=== PATIENT | male | born 1960 | race Caucasian/White ===

== ENCOUNTER 2016-12-06 18:27 | Emergency (ER) | payer OTHER ==
--- NOTE | 2016-12-06 19:11 | UC ---
Cardiac HPI - HPI Summary HPI Summary: The patient comes in today for: 1. Left-sided chest pain: Onset: Initially, "early this morning" when at work he had chest pain (left side ) which was sharp and he became "lightheaded" (near syncope). He had just walked into work. He sat down at that time after going to the "back room"-- about 15 feet away. While walking, both of his legs felt "like lead." They also got "real tight." He also felt a "tingling numbness" in both legs. He saw down for about 10 minutes. He never fainted. He also felt pressure in the chest "like everything was being squeezed." His chest has felt tight since. He has also had some sharp pain "like a poke." At this time, he states that his legs feel "tight." He is still having chest tightness, leg tightness and heaviness, and tingling of his feet. He was at work until 5 PM. He works at a convenience store. Palliative/provocative: Deep breaths makes both the chest tightness and chest sharp pain worse. Quality: Tightness and sharp chest pain. Region: Left chest. Severity: 10/23 Time: Constant. Associated symptoms: Previous heart problems: None. CAD risk factors: Smoker: (+)--1ppd x 3 weeks--normally he does 1/2 ppd. HTN : (-). DM: (-). FmHx: (-). CT equivalent: (-), Cholesterol: (?). * - History of Current Complaint Chief Complaint: UCChestPain Stated Complaint: CHEST PAIN Time Seen by Provider: 12/06/16 18:58 Hx Obtained From: Patient - Allergy/Home Medications Allergies/Adverse Reactions: Allergies Allergy/AdvReac Type Severity Reaction Status Date / Time No Known Allergies Allergy Verified 05/26/14 13:40 Home Medications: Home Medications Ibuprofen [Advil] 400 mg 12/06/16 [History] PMH/Surg Hx/FS Hx/Imm Hx Previously Healthy: Yes Endocrine History Of: Denies: Diabetes, Thyroid Disease, Hyperthyroidism, Hypothyroidism, Dyslipidemia Cardiovascular History Of: Denies: Cardiac Disorders, Hypertension, Pacemaker/ICD, Myocardial Infarction , Congestive Heart Failure, Atrial Fibrillation, Deep Vein Thrombosis, Bleeding Disorders Respiratory History Of: Reports: COPD Denies: Asthma, Bronchitis, Pneumonia, Pulmonary Embolism GI/ History Of: Denies: Gastroesophageal Reflux, Ulcer, Gastrointestinal Bleed, Gall Bladder Disease, Kidney Stones, Diverticulitis, Renal Disease, Urosepsis Neurological History Of: Denies: TIA, CVA, Dementia, Seizures, Migraine Psychological History Of: Reports: Depression - He denies any suicidal ideation. Denies: Anxiety, Bipolar Disorder, Schizophrenia, Post Traumatic Stress Disorder Cancer History Of: Denies: Lung Cancer, Colorectal Cancer, Breast Cancer, Prostate Cancer, Cervical Cancer Other History Of: Negative For: HIV, Hepatitis B, Hepatitis C, Anticoagulant Therapy - Surgical History Surgical History: Yes Surgery Procedure, Year, and Place: wisdom teeth extraction - Family History Known Family History: Positive: Cardiac Disease Negative: Hypertension, Diabetes - Social History Occupation: Employed Full-time Alcohol Use: None Substance Use Type: Excessive Caffeine Smoking Status (MU): Heavy Every Day Tobacco Smoker Type: Cigarettes Amount Used/How Often: 1/2 ppd Have You Smoked in the Last Year: Yes Review of Systems Constitutional: Negative Skin: Negative Eyes: Negative ENT: Negative Respiratory: Negative Cardiovascular: Chest Pain Gastrointestinal: Negative Genitourinary: Negative All Other Systems Reviewed And Are Negative: Yes Physical Exam Triage Information Reviewed: Yes Appearance: Well-Appearing, No Pain Distress, Well-Nourished, Thin Vital Signs: Initial Vital Signs Temp 99.4 F 12/06/16 18:41 Pulse 77 12/06/16 18:41 Resp 16 12/06/16 18:41 BP 140/89 12/06/16 18:41 Pulse Ox 98 12/06/16 18:41 Vital Signs Reviewed: Yes Eyes: Positive: Conjunctiva Clear. Negative: Discharge ENT: Positive: Hearing grossly normal. Negative: Pharyngeal erythema, Nasal congestion, Nasal drainage, TM bulging, TM dull, TM red, Tonsillar swelling, Tonsillar exudate Dental: Positive: Other: - Mucous membraines moist, red. Neck: Positive: Supple, Nontender, No Lymphadenopathy. Negative: Nuchal Rigidity Respiratory: Positive: Chest non-tender, Lungs clear, No respiratory distress, No accessory muscle use. Negative: Rhonchi, Wheezing Cardiovascular: Positive: RRR, No Murmur Abdomen Description: Positive: Nontender, No Organomegaly, Soft. Negative: Distended, Guarding Musculoskeletal: Positive: Strength Intact, ROM Intact, No Edema Neurological: Positive: Alert, Muscle Tone Normal, Other: - Neurologic exam: Inspection: no fasciculations. Cranial nerves (II-XII): intact Muscular tone: Reflexes: Biceps: 2+/2 x 2 Triceps: 2+/2 x 2 Brachioradialis: 2+/2 x 2 Patellar: 2+/2 x 2 Achilles: 2+/2 x 2 Coordination: Upper extremity: Alternating patting of thighs, alternating fingertips to thumb, index finger tip to nose--all normal. Lower extremity: Heel along juarez--normal. Strength: Upper extremity: appropriate for age and symmetrical Lower extremity: appropriate for age and symmetrical Gait: Regular: Normal. Heel to toe: Normal. Rhomberg: Normal. Sensation: No complaint of numbness. Psychological: Positive: Age Appropriate Behavior, Consolable Skin: Negative: rashes, breakdown Diagnostics - Laboratory Diagnostic Studies Completed/Ordered: EKG: Rate: 72. Rhythm: Sinus. Ectopy: None. Acute changes: small st elevation of the II, III, AVF leads? - Assessment/Plan Course Of Treatment: Patient was told that I was concerned that he may have a mild heart attack and recommended going to [facility] [place] [facility] ER via Ambulance. But he is definite in his opinion to go over by the his own car. - Clinical Impression Provider Diagnoses: Chest pain, rule out CT. Discharge - Discharge Plan Condition: Stable Disposition: HOME Additional Instructions: Go directly to the ER at [facility] [place] [facility].
[2016-12-06] MEDS ORDERED: Aspirin Low Dose CHEW TAB* 81 MG PO ONE (19:23)
[2016-12-06 19:50] VITALS: BP 149/90
== END 2016-12-06 19:50 | disposition left against medical advice (07) ==
LOC: UCEAST 18:27
DX: R07.9 Chest pain, unspecified (principal); F17.290 Nicotine dependence, other tobacco product, uncomplicated
CPT/HCPCS: 93005; 99213; A9270-GY; G0463

== ENCOUNTER 2016-12-06 20:21 | Observation (INO) | payer OTHER ==
[2016-12-06 21:18] LABS: Hematocrit 45 % (42-52); Hemoglobin 15.3 g/dl (14.0-18.0); Mean Corpuscular HGB Conc 34 g/dl (31-36); Mean Corpuscular Hemoglobin 31 pg (27-31); Mean Corpuscular Volume 90 fL (80-94); Mean Platelet Volume 7 um3 (7.4-10.4); Red Blood Count 5.02 10^6/ul (4.0-5.4); Red Cell Distribution Width 14 % (10.5-15); White Blood Count 7.1 10^3/ul (3.5-10.8)
[2016-12-06] MEDS: NS 0.9% 1000 ML* 1,000 ML IV SCH (21:23)
[2016-12-06 21:33] LABS: Albumin 4.4 g/dL (3.2-5.2); BUN/Creatinine Ratio 7.7 (8-20); C Reactive Protein 2.61 mg/L (< 5.00); Calcium 9.5 mg/dL (8.6-10.3); EGFR African American 111.7 (>60); EGFR Non-African American 86.8 (>60); Globulin 2.6 g/dL (2-4); Magnesium 2.2 mg/dL (1.9-2.7); Potassium 3.3 mmol/L (3.5-5.0); Total Bilirubin 0.6 mg/dL (0.2-1.0)
[2016-12-06 21:35] LABS: Troponin I 0.01 ng/mL (<0.04)
--- NOTE | 2016-12-06 21:35 | RAD ---
Indication: Chest pain. Single frontal view of the chest performed at 2100 was reviewed. No prior study is available for comparison.. No mediastinal shift is noted. Heart is of normal size and configuration. Lung shelton appear clear. Chronic pleural changes are noted in the right costophrenic angle. IMPRESSION: LIKELY CHRONIC PLEURAL CHANGES RIGHT COSTOPHRENIC ANGLE.
[2016-12-06 21:55] LABS: TSH (Thyroid Stimulating Horm) 4.99 mcIU/mL (0.34-5.60)
--- NOTE | 2016-12-06 22:18 | ED ---
Bruno Keane Billy, scribed for Dejan Garcia MD on 12/06/16 at 2059 . HPI Chest Pain - HPI Summary HPI Summary: Patient is a 56 year-old male coming to [facility] for evaluation of intermittent chest pressure since 0900 this morning. He describes non-radiating, left-sided chest pain. Patient was seen at [facility] and referred to the ED for further evaluation. He reports feeling lightheaded and near-syncopal. He also states that his legs felt "heavy like lead" and numbness in both legs after he sat down. Patient states that he feels anxious due to numerous personal, emotional issues. He denies any diaphoresis or SOB. His chest pressure continues at this time in the ED. - History of Current Complaint Chief Complaint: EDChestPainROMI Time Seen by Provider: 12/06/16 20:52 Hx Obtained From: Patient Onset/Duration: Started Hours Ago Time of Onset: 09:00 Timing: Intermittent Initial Severity: Moderate Current Severity: Moderate Chest Pain Location: Left Anterior Chest Pain Radiates: No Character: Pressure/Squeezing Aggravating Factor(s): Nothing Alleviating Factor(s): Nothing Associated Signs and Symptoms: Positive: Chest Pain, Lightheadedness, Palpitations. Negative: Shortness of Breath, Diaphoresis - Allergy/Home Medications Allergies/Adverse Reactions: Allergies Allergy/AdvReac Type Severity Reaction Status Date / Time No Known Allergies Allergy Verified 05/26/14 13:40 PMH/Surg Hx/FS Hx/Imm Hx Endocrine/Hematology History: Denies: Hx Anticoagulant Therapy, Hx Diabetes, Hx Thyroid Disease Cardiovascular History: Denies: Hx Congestive Heart Failure, Hx Deep Vein Thrombosis, Hx Hypertension , Hx Myocardial Infarction, Hx Pacemaker/ICD Respiratory History: Reports: Hx Chronic Obstructive Pulmonary Disease (COPD) Denies: Hx Asthma, Hx Lung Cancer, Hx Pneumonia, Hx Pulmonary Embolism GI History: Denies: Hx Gall Bladder Disease, Hx Gastrointestinal Bleed, Hx Ulcer, Hx Urosepsis History: Denies: Hx Kidney Stones, Hx Renal Disease Neurological History: Denies: Hx Dementia, Hx Migraine, Hx Seizures, Hx Transient Ischemic Attacks (TIA) Psychiatric History: Reports: Hx Depression - He denies any suicidal ideation. Denies: Hx Anxiety, Hx Schizophrenia, Hx Bipolar Disorder - Surgical History Surgery Procedure, Year, and Place: wisdom teeth extraction Infectious Disease History: No Infectious Disease History: Denies: Hx Clostridium Difficile, Hx Hepatitis, Hx Human Immunodeficiency Virus (HIV), Hx of Known/Suspected MRSA, Hx Shingles, Hx Tuberculosis, Hx Known/ Suspected VRE, Hx Known/Suspected VRSA, History Other Infectious Disease, Traveled Outside the [place] in Last 30 Days - Family History Known Family History: Positive: Cardiac Disease Negative: Hypertension, Diabetes - Social History Alcohol Use: alcoholic Substance Use Type: Reports: Excessive Caffeine Smoking Status (MU): Heavy Every Day Tobacco Smoker Type: Cigarettes Amount Used/How Often: 1/2 ppd Have You Smoked in the Last Year: Yes Review of Systems Negative: Skin Diaphoresis Positive: Palpitations, Chest Pain Negative: Shortness Of Breath Neurological: Other - lightheaded Positive: Weakness - legs, Numbness - legs Positive: Anxious All Other Systems Reviewed And Are Negative: Yes Physical Exam Triage Information Reviewed: Yes Vital Signs On Initial Exam: Initial Vitals Temp Pulse Resp BP Pulse Ox 98.5 F 82 18 122/66 98 12/06/16 20:40 12/06/16 20:40 12/06/16 20:40 12/06/16 20:40 12/06/16 20:40 Vital Signs Reviewed: Yes Appearance: Positive: Well-Appearing, No Pain Distress Skin: Positive: Warm, Skin Color Reflects Adequate Perfusion, Dry Head/Face: Positive: Normal Head/Face Inspection Eyes: Positive: EOMI, ITZEL ENT: Positive: Normal ENT inspection Neck: Positive: Supple, Nontender Respiratory/Lung Sounds: Positive: Clear to Auscultation, Breath Sounds Present Cardiovascular: Positive: RRR Abdomen Description: Positive: Nontender, Soft Bowel Sounds: Positive: Present Musculoskeletal: Positive: Normal, Strength/ROM Intact. Negative: Edema Left, Edema Right Neurological: Positive: Normal, Sensory/Motor Intact, Alert, Oriented to Person Place, Time Psychiatric: Positive: Anxious Diagnostics - Vital Signs Vital Signs Temp Pulse Resp BP Pulse Ox 12/06/16 20:51 99.2 F 93 16 126/70 99 12/06/16 20:40 98.5 F 82 18 122/66 98 - Laboratory Lab Results: Lab Results 12/06/16 12/06/16 12/06/16 Range/Units 21:10 21:10 21:10 WBC 7.1 (3.5-10.8) 10^3/ul RBC 5.02 (4.0-5.4) 10^6/ul Hgb 15.3 (14.0-18.0) g/dl Hct 45 (42-52) % MCV 90 (80-94) fL MCH 31 (27-31) pg MCHC 34 (31-36) g/dl RDW 14 (10.5-15) % Plt Count 251 (150-450) 10^3/ul MPV 7 L (7.4-10.4) um3 Neut % (Auto) 55.5 (38-83) % Lymph % (Auto) 35.7 (25-47) % [place] % (Auto) 7.3 (1-9) % Eos % (Auto) 1.0 (0-6) % Baso % (Auto) 0.5 (0-2) % Absolute Neuts (auto) 3.9 (1.5-7.7) 10^3/ul Absolute Lymphs (auto) 2.5 (1.0-4.8) 10^3/ul Absolute Monos (auto) 0.5 (0-0.8) 10^3/ul Absolute Eos (auto) 0.1 (0-0.6) 10^3/ul Absolute Basos (auto) 0 (0-0.2) 10^3/ul Absolute Nucleated RBC 0 10^3/ul Nucleated RBC % 0.1 INR (Anticoag Therapy) 1.02 (0.89-1.11) APTT 30.7 (26.0-36.3) seconds D-Dimer, Quantitative < 200 (Less Than 230) ng/mL Sodium 133 (133-145) mmol/L Potassium 3.3 L (3.5-5.0) mmol/L Chloride 100 L (101-111) mmol/L Carbon Dioxide 26 (22-32) mmol/L Anion Gap 7 (2-11) mmol/L BUN 7 (6-24) mg/dL Creatinine 0.91 (0.67-1.17) mg/dL Est GFR ( Amer) 111.7 (>60) Est GFR (Non-Af Amer) 86.8 (>60) BUN/Creatinine Ratio 7.7 L (8-20) Glucose 141 H (70-100) mg/dL Lactic Acid (0.5-2.0) mmol/L Calcium 9.5 (8.6-10.3) mg/dL Magnesium 2.2 (1.9-2.7) mg/dL Total Bilirubin 0.60 (0.2-1.0) mg/dL AST 20 (13-39) U/L ALT 10 (7-52) U/L Alkaline Phosphatase 40 (34-104) U/L Total Creatine Kinase 370 H (10-223) U/L CK-MB (CK-2) 7.6 H (0.6-6.3) ng/mL Troponin I 0.01 (<0.04) ng/mL C-Reactive Protein 2.61 (< 5.00) mg/L B-Natriuretic Peptide ( - 100) pg/mL Total Protein 7.0 (6.4-8.9) g/dL Albumin 4.4 (3.2-5.2) g/dL Globulin 2.6 (2-4) g/dL Albumin/Globulin Ratio 1.7 (1-3) Lipase 42 (11.0-82.0) U/L TSH 4.99 (0.34-5.60) mcIU/mL 12/06/16 12/06/16 Range/Units 21:10 21:10 WBC (3.5-10.8) 10^3/ul RBC (4.0-5.4) 10^6/ul Hgb (14.0-18.0) g/dl Hct (42-52) % MCV (80-94) fL MCH (27-31) pg MCHC (31-36) g/dl RDW (10.5-15) % Plt Count (150-450) 10^3/ul MPV (7.4-10.4) um3 Neut % (Auto) (38-83) % Lymph % (Auto) (25-47) % [place] % (Auto) (1-9) % Eos % (Auto) (0-6) % Baso % (Auto) (0-2) % Absolute Neuts (auto) (1.5-7.7) 10^3/ul Absolute Lymphs (auto) (1.0-4.8) 10^3/ul Absolute Monos (auto) (0-0.8) 10^3/ul Absolute Eos (auto) (0-0.6) 10^3/ul Absolute Basos (auto) (0-0.2) 10^3/ul Absolute Nucleated RBC 10^3/ul Nucleated RBC % INR (Anticoag Therapy) (0.89-1.11) APTT (26.0-36.3) seconds D-Dimer, Quantitative (Less Than 230) ng/mL Sodium (133-145) mmol/L Potassium (3.5-5.0) mmol/L Chloride (101-111) mmol/L Carbon Dioxide (22-32) mmol/L Anion Gap (2-11) mmol/L BUN (6-24) mg/dL Creatinine (0.67-1.17) mg/dL Est GFR ( Amer) (>60) Est GFR (Non-Af Amer) (>60) BUN/Creatinine Ratio (8-20) Glucose (70-100) mg/dL Lactic Acid 1.3 (0.5-2.0) mmol/L Calcium (8.6-10.3) mg/dL Magnesium (1.9-2.7) mg/dL Total Bilirubin (0.2-1.0) mg/dL AST (13-39) U/L ALT (7-52) U/L Alkaline Phosphatase (34-104) U/L Total Creatine Kinase (10-223) U/L CK-MB (CK-2) (0.6-6.3) ng/mL Troponin I (<0.04) ng/mL C-Reactive Protein (< 5.00) mg/L B-Natriuretic Peptide 47 ( - 100) pg/mL Total Protein (6.4-8.9) g/dL Albumin (3.2-5.2) g/dL Globulin (2-4) g/dL Albumin/Globulin Ratio (1-3) Lipase (11.0-82.0) U/L TSH (0.34-5.60) mcIU/mL Result Diagrams: 12/06/16 21:10 12/06/16 21:10 Lab Statement: Any lab studies that have been ordered have been reviewed, and results considered in the medical decision making process. - Radiology CXR Radiology Interpretation Completed By: Radiologist - LIKELY CHRONIC PLEURAL CHANGES RIGHT COSTOPHRENIC ANGLE. - EKG 2046 EKG Interpretation: NSR 83 bpm, no ectopy, ST elevation in V2 and V3, probable early repol Chest Pain Course/Dx - Course Course Of Treatment: NO CRITICAL CARE TIME Assessment/Plan: ADMIT HOSPITALIST STABLE - Diagnoses Provider Diagnoses: Chest pain Discharge - Discharge Plan Condition: Stable Disposition: ADMITTED TO [facility] Referrals: No Primary Care Phys,NOPCP [Primary Care Provider] - The documentation as recorded by the Bruno haskins Billy accurately reflects the service I personally performed and the decisions made by me, Dejan Garcia MD.
[2016-12-07] MEDS: NS 0.9% 1000 ML* 1,000 ML IV SCH (05:36)
[2016-12-07] MEDS ORDERED: Heparin VIAL(*) 5000 UNITS/ML VIAL (FIVE THOUSAND) SUBCUT SCH (06:00)
[2016-12-07 06:55] LABS: HDL Cholesterol 33.1 mg/dL
[2016-12-07 06:57] LABS: Troponin I 0.01 ng/mL (<0.04)
--- NOTE | 2016-12-07 12:15 | RAD ---
Edited for charges. Indication: Chest pain. Myocardial perfusion scan was performed utilizing 1 day protocol. Rest myocardial perfusion was performed after intravenous injection of 10.3 mCi of technetium 99m tetrofosmin. Treadmill stress study was performed and the maximum heart rate of cheek was 105% of the maximum predicted value. 26.6 mCi of technetium 99m tetrofosmin was then injected for the stress portion of the study. There is homogeneous distribution of the radiotracer throughout the left ventricle. There is no evidence of any fixed or reversible perfusion defects identified. The ejection fraction at stress is 63%. Evaluation of wall motion demonstrates no focal wall motion abnormality. IMPRESSION: No definite fixed or reversible perfusion defect is identified. ASSESSMENT: LOW RISK Based on imaging criteria from ACC/AHA 2002 Guideline Update for the Management of Patients With Chronic Stable Angina Table 23. Noninvasive Risk Stratification. MTDD
[2016-12-07 12:36] VITALS: BP 125/73
--- NOTE | 2016-12-07 12:43 | HP ---
HISTORY AND PHYSICAL: DATE OF ADMISSION: 12/06/16 PRIMARY CARE PHYSICIAN: He does not have a primary care physician. CHIEF COMPLAINT: Chest pain. 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 He then developed a sharp pain in his chest. At that point, it was about 7/10 in severity. He felt like he was going to pass out, so he went back to the room to rest. His legs felt heavy and numb like they were going to give out. Then, he started crying which lasted 10 minutes. He was able to calm down for the rest of the day, but then developed pain on left side of his chest; it was a squeezing type of pain. It was also pressure like. He felt like somebody was tapping on his chest as well. He had no increased shortness of breath, no nausea or vomiting, no palpitations, and no sweating. That squeezing pain was about 3/10 in severity, which scared him enough to come to the hospital. PAST MEDICAL HISTORY: He has a past medical history, he says, significant only for COPD and tobacco abuse. MEDICATIONS: He is currently on no medications. ALLERGIES: He has no known drug allergies. FAMILY HISTORY: Mother at 75 of lung cancer. He did not know his father. SOCIAL HISTORY: He still smokes 1 pack a day and has done so for 30 years. No alcohol or recreational drug use. He is cage cashier. He is , with 3 children. He has no healthcare proxy. REVIEW OF SYSTEMS: A 14-point review of systems was completed with the patient. All pertinent positives and negatives are in the history of present illness, otherwise it is negative. PHYSICAL EXAMINATION GENERAL: Pleasant gentleman, lying in bed, in no acute distress. VITAL SIGNS: Temperature is 99.2 degrees, heart rate 87 beats per minute, respiratory rate 11 breaths per minute, pulse ox 99%, blood pressure 126/70. HEENT: Normocephalic, atraumatic. Pupils are equal, round, and reactive to light. Moist mucous membranes. NECK: Supple. No JVD, bruits, palpable thyroid, or lymphadenopathy. CHEST: Clear to auscultation and percussion bilaterally. CARDIOVASCULAR: S1 and S2 appreciated. Regular rate and rhythm. No murmurs, gallops, or rubs. ABDOMEN: Positive bowel sounds in all 4 quadrants. Soft, nontender, nondistended. EXTREMITIES: No cyanosis, clubbing, or edema. +2 peripheral pulses bilaterally. NEURO: Alert and oriented x3. Moves all extremities. SKIN: No rashes or abnormalities. DIAGNOSTIC STUDIES/LAB DATA: White count 7.1, hemoglobin 15.3, hematocrit 45, platelets 251. Sodium is 132, potassium is 3.3, chloride 100, CO2 26, BUN 7, creatinine 0.19, glucose 141. Troponin 0.01. D-dimer is less than 200. Chest x-ray was interpreted by Radiology as likely chronic pleural changes, right costophrenic angle. EKG shows normal sinus rhythm at 83 beats per minute. Normal axis. No acute ST -T wave changes. ASSESSMENT AND PLAN: 1. Chest pain. The patient certainly with risk factors with his smoking history. I will admit the patient, rule him out for a myocardial infarction with troponins, check a lipid profile, and get a nuclear stress test in the morning if the troponins are negative. 2. Chronic obstructive pulmonary disease. Currently not requiring any inhalers , we will monitor. 3. Tobacco abuse. Declines nicotine replacement. Encouraged cessation. 4. FEN. N.p.o. awaiting study. 3. DVT prophylaxis. Heparin subcu. 4. The patient is a full code. TIME SPENT: Over 75 minutes was spent on this H and P, more than 40 minutes of which was spent in direct [id number] contact with the patient in evaluation, physical exam, counseling, and coordination of care. [id number]/[facility] #: [id number] [facility] CENTERYossi
--- NOTE | 2016-12-08 03:03 | DS ---
DISCHARGE SUMMARY: DATE OF ADMISSION: 12/06/16 DATE OF DISCHARGE: 12/07/16 PRIMARY CARE PROVIDER: None. DISCHARGING PROVIDER: CAROLINA Xie. SUPERVISING PHYSICIAN: Tania Patel MD.* (DICTATED BY CAROLINA XIE) PRIMARY DISCHARGE DIAGNOSIS: Chest pain. SECONDARY DISCHARGE DIAGNOSIS: Tobacco use disorder. HOME MEDICATIONS: None. HOSPITAL IMAGIN. Chest x-ray shows no acute process. 2. Nuclear stress testing is read as a low risk study without evidence of ischemia or a prior infarct. 3. EKG demonstrates a sinus rhythm with some nonspecific ST changes in precordial leads that remain unchanged. HOSPITAL COURSE: This is a 58-year-old gentleman with a significant smoking history and probable diagnosis of COPD, who presented to the [facility] and later transferred to the emergency department with complaints of chest pressure. The patient's initial EKG demonstrated some nonspecific ST segment changes that remained unchanged on repeat and his initial troponin was negative. The remainder of his labs were within normal limits. Chest x-ray demonstrated no acute process, but likely some chronic pleural changes at the right costophrenic angle. The patient was not hypoxic nor did he have a significant wheeze on exam. The patient's pain and pressure was not reproducible with a chest wall exam. The patient was subsequently admitted to observation status with stress test the following day. The patient reported that he still had some feelings of chest pressure, but to a lesser severity than what brought him in throughout his hospital stay. The patient's troponin remained negative on serial testing. Fasting lipids were essentially within normal limits with a total cholesterol of 169, LDL of 120, triglycerides of 82, and HDL of 33. D-dimer was also noted to be negative, listed at less than 200. The patient underwent nuclear stress testing, which was read as a low risk study without evidence of ischemia or infarct. Recommended to the patient that he establish with primary care. He stated that he is without health insurance at this time. I offered support and access to local resources through our social work department, which the patient was hesitant to accept. DISPOSITION: The patient is being discharged to home without any changes to home medications. Recommend establishing care with primary care provider and to cease smoking. CAROLINA XIE [id number]/[facility] #: [id number] MTDD
== END 2016-12-07 13:19 | disposition home or self-care (01) ==
LOC: ED 20:21 → MEDTELE 23:47
PROVIDERS: ADMIT Internal Medicine; ATTEND Internal Medicine
DX: R07.9 Chest pain, unspecified (principal); J44.9 Chronic obstructive pulmonary disease, unspecified; F17.210 Nicotine dependence, cigarettes, uncomplicated; R42 Dizziness and giddiness; R55 Syncope and collapse; R20.0 Anesthesia of skin
CPT/HCPCS: 36415; 71010; 78452; 80053; 80061; 82550; 82553; 83605; 83690; 83735; 83880; 84443; 84484; 85025; 85379; 85610; 85730; 86140; 93005; 93017; 96360; 96361; 96372; 99283; A9502; G0378; J1644